=== PATIENT | male | born 1980 | race Caucasian/White ===

== ENCOUNTER → 2020-09-23 | Outpatient (CLI) | payer SELFPAY ==
[2020-09-26 09:02] LABS: CHLAMYDIA BY NAA Negative (Negative); GONOCOCCUS BY NAA Negative (Negative); TRICH VAG BY NAA Negative (Negative)
== END ==
LOC: LAB EV 10:02
PROVIDERS: Nurse Practitioner Family
DX: Z11.3 Encounter for screening for infections with a predominantly sexual mode of transmission (principal)
CPT/HCPCS: 87491; 87591; 87661

== ENCOUNTER 2025-08-15 14:16 | Emergency (ER) | payer OTHER ==
[~2025-08-15] VITALS: Ht 177.8 cm; Wt 88.5 kg
[2025-08-15] MEDS ORDERED: Ondansetron HCl 2 MG / ML 2ML Vial IV ONE (14:45)
[2025-08-15] MEDS ORDERED: HYDROmorphone HCl/Pf 1MG SYR IV ONE ×2 (14:45→15:25)
[2025-08-15] MEDS ORDERED: NS 1,000 ML IV SCH (14:45)
[2025-08-15] MEDS ORDERED: CeFAZolin Sodium 2,000 MG in NS 100 ML IV ONE (15:00)
[2025-08-15] MEDS ORDERED: Percocet 5-3251 EACH PO (16:55)
[2025-08-15] MEDS ORDERED: ONDA4ODT MM (16:55)
[2025-08-15] MEDS ORDERED: CEPH500 PO (16:55)
[2025-08-15] MEDS ORDERED: IBUP800 PO (17:24)
[2025-08-15 17:31] VITALS: BP 147/80
== END 2025-08-15 17:34 | disposition home or self-care (01) ==
LOC: ER 14:16
DX: S52.592B Other fractures of lower end of left radius, initial encounter for open fracture type I or II (principal); X58.XXXA Exposure to other specified factors, initial encounter
CPT/HCPCS: 12002; 73090; 90471; 90715; 96365; 96375; 96376; 99283-25; J0690; J1171; J2405; J7030

== ENCOUNTER 2025-08-31 06:09 | Day surgery (SDC) | payer OTHER ==
[~2025-08-31] VITALS: Ht 177.8 cm; Wt 95.5 kg
[~2025-08-31 06:09] MED LIST: CEPH500 PO; IBUP800 PO; ONDA4ODT MM; Percocet 5-3251 EACH PO
[2025-08-31] MEDS ORDERED: Rocuronium Bromide 10 MG/ML 5ML Injection IV ONE ×2 (07:02→09:39)
[2025-08-31] MEDS ORDERED: Ondansetron HCl 2 MG / ML 2ML Vial ONE ×2 (07:02→10:45)
[2025-08-31] MEDS ORDERED: Metoclopramide HCl 5MG / ML 2ML Vial ONE (07:02)
[2025-08-31] MEDS ORDERED: FentaNYL Citrate 50 MCG/ML 2 ML Injection ONE ×3 (07:02→10:44)
[2025-08-31] MEDS ORDERED: CeFAZolin Sodium 2,000 MG VIAL ONE (07:12)
[2025-08-31] MEDS ORDERED: Midazolam HCl 1MG / ML 2ML Vial ONE (07:21)
[2025-08-31] MEDS ORDERED: Bupivacaine 0.5% HCl 5 MG/ML 30MLVIAL INJ ONE (08:11)
[2025-08-31] MEDS ORDERED: Sugammadex Sodium 200 MG/2ML SDV (100 MG/ML) ONE (09:57)
[2025-08-31] MEDS ORDERED: HYDROmorphone HCl/Pf 1MG SYR ONE ×2 (11:03→11:38)
--- NOTE | 2025-08-31 11:13 | NUR ---
08/31/[address] CONSULTED REGARDING HYPERTENSION. HE ORDERED DILAUDID ADMINISTRATION TO CONTROL PAIN FOLLOWED BY 0.5MG IV LABETALOL, IF HYPERTENSION PERSISTS (SEE ANESTHESIA ORDERS).
--- NOTE | 2025-08-31 12:06 | NUR ---
08/31/25 1206 Kellie Craig ASSUMED CARE OF PT IN STEP DOWN UNIT, STARRY DRINK OFFERED FOR NAUSEA. FAMILY AT BEDSIDE.
[2025-08-31] MEDS ORDERED: Morphine Sulfate 4 MG/1 ML Injection ONE (12:18)
[2025-08-31 12:39] VITALS: BP 144/96
== END 2025-08-31 14:00 | disposition home or self-care (01) ==
LOC: ORSCSDS 06:09
PROVIDERS: Orthopaedic Surgery
PROC: 0PBJ0ZZ Excision of Left Radius, Open Approach (ICD-10-PCS; principal; 2025-08-31 07:30)
PROC: 01Q60ZZ Repair Radial Nerve, Open Approach (ICD-10-PCS; principal; 2025-08-31 07:30)
PROC: 0LQ60ZZ Repair Left Lower Arm and Wrist Tendon, Open Approach (ICD-10-PCS; principal; 2025-08-31 07:30)
DX: S66.922A Laceration of unspecified muscle, fascia and tendon at wrist and hand level, left hand, initial encounter (principal); S64.22XA Injury of radial nerve at wrist and hand level of left arm, initial encounter; S52.502A Unspecified fracture of the lower end of left radius, initial encounter for closed fracture; W27.0XXA Contact with workbench tool, initial encounter
CPT/HCPCS: A6253; A9270; C1889; J0690; J1171; J2003; J2250; J2270; J2405; J2704; J2765; J3010; J7120